=== PATIENT | female | born 1990 | race Caucasian/White ===

== ENCOUNTER 2021-08-27 20:45 | Emergency (ER) | payer BC ==
[~2021-08-27] VITALS: Ht 167.6 cm; Wt 79.4 kg
[2021-08-27] MEDS ORDERED: ORPHENADRINE C100 MG PO (21:19)
[2021-08-27] MEDS ORDERED: GABAPENTIN300 MG PO (21:19)
[2021-08-27] MEDS ORDERED: ONDANSETRON ODT4 MG PO (21:19)
[2021-08-27] MEDS ORDERED: ORPHENADRINE CITRATE 30 MG/ML VIAL ONE (21:29)
[2021-08-27] MEDS ORDERED: ORPHENADRINE CITRATE 30 MG/ML VIAL IM ONE (21:30)
[2021-08-27] MEDS ORDERED: ONDANSETRON HCL 4 MG ORAL DISINTEGRATING TAB PO ONE (21:30)
[2021-08-27] MEDS ORDERED: KETOROLAC TROMETHAMINE 60 MG/2 ML VIAL IM ONE (21:30)
== END 2021-08-27 22:00 | disposition home or self-care (01) ==
LOC: ER 21:14
DX: M54.40 Lumbago with sciatica, unspecified side (principal)
CPT/HCPCS: 99282; J1885; J2360; Q0162